=== PATIENT | male | born 1985 | race Hispanic/Latino ===

== ENCOUNTER 2025-04-07 09:06 | Emergency (ER) | payer BC ==
--- NOTE | 2025-04-07 09:16 | EDPHYS ---
Physician Documentation [facility] Name: Unruly Andino Age: 39 yrs Sex: Male : 1985 Arrival Date: 04/07/2025 Time: 09:06 Bed IW1 Private MD: ED Physician Sav Anderson HPI: 04/07 09:12 This 39 yrs old Male presents to ER via Unassigned with complaints of Ear Pain. kb 09:12 Pt is a 39 year old male who presents for decreased hearing to right ear for one month. kb Reports pain started yesterday. Denies fever. Historical: - Allergies: 09:26 No Known Allergies; hb ROS: 09:12 Constitutional: As per HPI kb Exam: 09:12 Constitutional: This is a well developed, well nourished patient who is awake, alert, kb and in no acute distress. Head/Face: Normocephalic, atraumatic. Respiratory: Respirations even and unlabored. No increased work of breathing. Talking in full sentences Skin: Warm, dry with normal turgor. Normal color. MS/ Extremity: Pulses equal, no cyanosis. Neurovascular intact. Full, normal range of motion. Neuro: Awake and alert, GCS 15, oriented to person, place, time, and situation. 09:12 ENT: External ear(s): are unremarkable, Ear canal(s): cerumen impaction, that is moderate, that is hard, occluding the right ear canal, TM's: not visable, because of cerumen, MDM: 09:11 Medical Screening Exam initiated kb 09:15 Data reviewed: vital signs, nurses notes. kb 09:16 Differential diagnosis: otitis media, otitis externa, foreign body, acute otalgia, kb cerumen impaction. Counseling: I had a detailed discussion with the patient and/or guardian regarding the historical points, exam findings, and any diagnostic results supporting the discharge/admit diagnosis, the need for outpatient follow up, an ENT specialist, to return to the emergency department if symptoms worsen or persist or if there are any questions or concerns that arise at home. 09:22 ED course: Discussed use of cerumen drops to soften cerumen and follow up with ENT. Pt kb in agreement with plan of care. Administered Medications: No medications were administered Disposition: 09:38 Co-signature as Attending Physician, Sav Anderson MD I reviewed the patient's care rn provided by the Advanced Practice Provider and agree with the diagnosis and treatment plan. Disposition Summary: 04/07/25 09:16 Discharge Ordered Notes: Location: Home kb Condition: Stable kb Diagnosis - Impacted cerumen, right ear kb Followup: kb - With: Emergency Department - When: As needed - Reason: Worsening of condition Followup: kb - With: Private Physician - When: 2 - 3 days - Reason: Recheck today's complaints, Continuance of care, Re-evaluation by your physician Discharge Instructions: - Discharge Summary Sheet kb - Earwax Buildup, Adult kb Forms: - Medication Reconciliation Form kb - Antibiotic Education kb - Prescription Opioid Use kb - Patient Portal Instructions kb - Leadership Thank You Letter kb Signatures: Brenda Meng, SERVICE PROVIDER-C SERVICE PROVIDER-Ckb Sav Anderson MD MD rn Baxter, Heather, RN RN Corrections: (The following items were deleted from the chart) 09:15 09:12 Pt is a 39 year old male who presents for decreased hearing to right ear for one kb month. Reports pain started yesterday. . kb
--- NOTE | 2025-04-07 09:26 | ER ---
Nurse's Notes [facility] Name: Unruly Andino Age: 39 yrs Sex: Male : 1985 Arrival Date: 04/07/2025 Time: 09:06 Bed IW1 Private MD: Diagnosis: Impacted cerumen, right ear Presentation: 04/07 09:25 Chief complaint: Right ear pain x 1 month. Coronavirus screen: At this time, the client hb does not indicate any symptoms associated with coronavirus-19. Ebola Screen: No symptoms or risks identified at this time. Initial Sepsis Screen: Does the patient meet any 2 criteria? No. Patient's initial sepsis screen is negative. Does the patient have a suspected source of infection? No. Patient's initial sepsis screen is negative. Risk Assessment: Do you want to hurt yourself or someone else? Patient reports no desire to harm self or others. Onset of symptoms was February 2025. 09:25 Method Of Arrival: Ambulatory 09:25 Acuity: RUDDY 4 Historical: - Allergies: 09:26 No Known Allergies; ED Course: 09:10 Patient arrived in ED. im 09:10 [facility]C [facility] kb 09:11 Sav Anderson MD is Attending Physician. kb 09:25 Triage completed. Administered Medications: No medications were administered Outcome: 09:16 Discharge ordered by . kb 09:26 Patient left the ED. Signatures: Brenda Meng FNP-C FNP-Ckb Baxter, Heather, RN RN Tamie Salinas im
== END 2025-04-07 09:26 | disposition home or self-care (01) ==
LOC: ER 09:06
DX: H92.01 Otalgia, right ear (principal); H61.21 Impacted cerumen, right ear
CPT/HCPCS: 99281